=== PATIENT | male | born 1980 | race Caucasian/White ===

== ENCOUNTER 2020-06-06 18:18 | Emergency (ER) | payer OTHER ==
[~2020-06-06] VITALS: Ht 177.8 cm; Wt 98.5 kg
--- NOTE | 2020-06-06 20:14 | NUR ---
pt to room from lobby
--- NOTE | 2020-06-06 20:19 | NUR ---
Back from MRI, no loss of bowel or bladder control. Is in significant amt of pain, difficulty getting onto gurney, ambulating.
--- NOTE | 2020-06-06 20:50 | NUR ---
Waiting for ERP evaluation, pt having difficulty getting comfortable. Reports worsening of back pain.
[2020-06-06] MEDS ORDERED: LIDODERM 5% PATCH TD ONE ×2 (21:30→21:34)
[2020-06-06] MEDS ORDERED: KETOROLAC 30 MG/1 ML IM ONE (21:30)
[2020-06-06] MEDS ORDERED: ACETAMINOPHEN 500 MG TABLET PO ONE (21:30)
[2020-06-06] MEDS ORDERED: DIAZEPAM 5 MG TABLET PO ONE (21:30)
[2020-06-06] MEDS ORDERED: DIAZEPAM 5 MG TABLET ONE (21:33)
[2020-06-06] MEDS ORDERED: ACETAMINOPHEN 500 MG TABLET ONE (21:34)
[2020-06-06] MEDS ORDERED: KETOROLAC 30 MG/1 ML ONE (21:34)
--- NOTE | 2020-06-06 21:43 | NUR ---
medicated per order, unable to scan as computer in room 3 not working, no portable available.
[2020-06-06 21:53] VITALS: BP 145/88
== END 2020-06-06 21:55 | disposition home or self-care (01) ==
LOC: ED 21:17
DX: M54.41 Lumbago with sciatica, right side (principal); Z87.891 Personal history of nicotine dependence
CPT/HCPCS: 72148; 96372; 99284; J1885